=== PATIENT | female | born 1985 | race Hispanic/Latino ===

== ENCOUNTER 2017-07-07 17:33 | Emergency (ER) | payer BC ==
[2017-07-07] MEDS ORDERED: predniSONE 20 MG TAB ONE (17:48)
== END 2017-07-07 18:00 | disposition home or self-care (01) ==
LOC: ERS 17:33
DX: T78.40XA Allergy, unspecified, initial encounter (principal)
CPT/HCPCS: 99284; J7506

== ENCOUNTER 2020-03-10 08:04 | Outpatient (CLI) | payer BC ==
--- NOTE | 2020-03-10 09:26 | CT ---
Exam: Abdomen CT with and without contrast HISTORY: Hepatomegaly. Possible liver mass. COMPARISON: None Correlation: 02/21/2020 ultrasound TECHNIQUE: Abdomen and pelvic CT is performed with and without contrast following urogram protocol. C oronal reformatted images are submitted for interpretation FINDINGS: Lung bases: Scarring and atelectasis in the lung bases Heart: Normal heart size. No significant pericardial fluid Aorta: Normal caliber. No periaortic fat stranding Liver: Appropriate enhancement. No enhancing masses. No CT correlate to the recent ultrasound exam. Spleen: Appropriate enhancement Pancreas: Appropriate enhancement Adrenal glands: Symmetric enhancement Lymph nodes: No gastrohepatic, retrocrural or periportal lymphadenopathy Portal vein: Patent Gallbladder: Unremarkable Kidneys: Noncontrast: No evidence of hydronephrosis or nephrolithiasis Contrast: Symmetric enhancement Mesentery: No mass, nephropathy, free air or free fluid Alimentary canal: Limited evaluation due to lack of oral contrast administration. No evidence of kevin l obstruction. The ileocecal junction is normal. Normal caliber appendix. Scattered fecal material in a nondistended/nondilated colon. No lytic or blastic lesions in the osseous structures IMPRESSION: 1. No evidence of a solid or cystic mass in the liver to correspond to recent sonographic findings.
[2020-03-10] MEDS ORDERED: Iopamidol-370 76% 500 ML 1 ML ONE (12:06)
== END 2020-03-10 08:05 | disposition home or self-care (01) ==
LOC: BICCT 08:04
PROVIDERS: ATTEND Family Medicine
DX: R16.0 Hepatomegaly, not elsewhere classified (principal)
CPT/HCPCS: 74170; Q9967

== ENCOUNTER 2022-12-17 08:35 | Outpatient (CLI) | payer BC | END 2022-12-17 08:36 | disposition home or self-care (01) | LOC: BICMRI 08:35 | PROVIDERS: ATTEND Orthopaedic Surgery | DX: M25.561 Pain in right knee (principal); S83.241A Other tear of medial meniscus, current injury, right knee, initial encounter ==